=== PATIENT | male | born 1965 | race Asian ===

== ENCOUNTER 2017-03-13 22:52 | Emergency (ER) | payer MEDICAID ==
[~2017-03-13] VITALS: Ht 167.6 cm; Wt 122.0 kg
[~2017-03-13 22:52] MED LIST: LORA2TAB2 PO; RISP2 PO; RIVA20TA PO; ZOLP10TA2 PO
[2017-03-13 23:02] VITALS: BP 126/78
== END 2017-03-14 01:30 | disposition left against medical advice (07) ==
LOC: ER 22:56
DX: Z53.21 Procedure and treatment not carried out due to patient leaving prior to being seen by health care provider (principal)

== ENCOUNTER 2017-03-14 04:08 | Emergency (ER) | payer MEDICAID ==
[~2017-03-14] VITALS: Ht 167.6 cm; Wt 123.0 kg
[2017-03-14] MEDS ORDERED: ACETAMINOPHEN 325MG TABLET PO ONE (05:15)
[2017-03-14 05:26] LABS: HEMATOCRIT 34.6 % (42.0-52.0); HEMOGLOBIN 11.5 g/dL (14.0-18.0)
[2017-03-14 09:30] VITALS: BP 122/74
== END 2017-03-14 09:53 | disposition home or self-care (01) ==
LOC: ER 06:50
DX: M25.561 Pain in right knee (principal); M54.5 Low back pain; Y93.01 Activity, walking, marching and hiking; W01.0XXA Fall on same level from slipping, tripping and stumbling without subsequent striking against object, initial encounter; Y92.69 Other specified industrial and construction area as the place of occurrence of the external cause; Y99.0 Civilian activity done for income or pay; Z87.19 Personal history of other diseases of the digestive system; I10 Essential (primary) hypertension; E11.9 Type 2 diabetes mellitus without complications; J45.909 Unspecified asthma, uncomplicated; Z79.01 Long term (current) use of anticoagulants; Z79.899 Other long term (current) drug therapy
CPT/HCPCS: 36415; 72110; 73562; 85014; 85018; 99285

== ENCOUNTER 2018-09-28 16:13 | Inpatient (IN) | payer MEDICAID ==
[~2018-09-28] VITALS: Ht 162.6 cm; Wt 106.6 kg
[~2018-09-28 16:13] MED LIST changes: +INSULIN GLARGINE UD 100 UNITS/ML SYR SUBCUT SCH
[2018-09-28 18:05] LABS: BG BASE EXCESS 0.3 mmol/L (-2.0-2.0); BG CARBOXYHEMOGLOBIN 0.4 % (0.5-1.5); BG FRACTION INSPIRED OXYGEN 21; BG HCO3 ACT 24.8 mmol/L (22.0-26.0); BG METHEMOGLOBIN 0.3 % (0.0-1.5); BG OXYHEMOGLOBIN 95.3 % (94.0-97.0); BG PCO2 39.7 mmHg (35.0-45.0); BG PH 7.413 (7.350-7.450); BG PO2 83.1 mmHg (75.0-100.0); BG SAMPLE SITE RIGHT BRACHIAL; BG TOTAL HEMOGLOBIN 13.7 g/dL (12.0-18.0); BG VENT MODE ROOM AIR
[2018-09-28] MEDS ORDERED: SODIUM CHLORIDE 0.9% 1,000 ML IV ONE (18:10)
[2018-09-28] MEDS ORDERED: ASPIRIN 81MG TABLET PO ONE (18:15)
[2018-09-28] MEDS ORDERED: NITROGLYCERIN OINT 1GM/INCH UDPKT TD ONE (18:15)
[2018-09-28 19:14] LABS: BASOPHILS % 1.1 % (0.0-2.0); EOSINOPHILS % 1.6 % (0.0-5.0); HEMATOCRIT. 41.4 % (42.0-52.0); HEMOGLOBIN. 13.7 g/dL (14.0-18.0); LYMPHOCYTES % 25.2 % (20.0-50.0); MEAN CORPUSCULAR HEMOGLOBIN 27.8 pg (28.0-32.0); MEAN PLATELET VOLUME 8.5 fl (7.4-10.4); MONOCYTES % 5.4 % (2.0-8.0); NEUTROPHILS % 66.7 % (40.0-76.0); PLATELET 246 x1000/uL (130-400); RED BLOOD CELL COUNT 4.94 mill/uL (4.7-6.1); RED CELL DISTRIBUTION WIDTH 14.3 % (11.6-14.6)
[2018-09-28 19:17] LABS: CHLORIDE 100 mEq/L (98-107)
[2018-09-28 19:21] LABS: D-DIMER 3.34 mg/L FEU (<0.50); PROTHROMBIN TIME 10.2 sec (9.1-11.1)
[2018-09-28 19:24] LABS: PHOSPHORUS 2.9 mg/dL (2.5-4.9)
[2018-09-28 19:26] LABS: CARBAMAZEPINE < 0.5 ug/mL (4-12); PHENOBARBITAL < 2.1 ug/mL (15.0-40.0)
[2018-09-28] MEDS ORDERED: ENOXAPARIN 100MG/ML SYR SUBCUT ONE (19:30)
[2018-09-28 20:58] LABS: CLARITY URINE CLEAR (CLEAR); COLOR URINE YELLOW (YELLOW); KETONES URINE NEGATIVE (NEGATIVE); LEUKOCYTE ESTERASE URINE NEGATIVE (NEGATIVE); NITRITE URINE NEGATIVE (NEGATIVE); OCCULT BLOOD URINE TRACE (NEGATIVE); PROTEIN URINE 4+ (NEGATIVE); UROBILINOGEN URINE 0.2 E.U./dL (0.2-1.0)
[2018-09-28] MEDS ORDERED: IOHEXOL-350 100 ML BOTTLE ONE (21:14)
[2018-09-29] MEDS ORDERED: DEXTROSE 50% WATER 50ML SYRINGE IV PRN
[2018-09-29] MEDS ORDERED: DIPHENHYDRAMINE 50MG/ML VIAL IV PRN
[2018-09-29] MEDS ORDERED: ONDANSETRON HCL 4MG/2ML INJ IV PRN
[2018-09-29] MEDS ORDERED: LORAZEPAM 0.5MG TABLET PO PRN
[2018-09-29] MEDS ORDERED: IPRATROPIUM/ALBUTEROL 0.5-3(2.5)MG/3ML NEB INH PRN
[2018-09-29] MEDS ORDERED: GUAIFENESIN 200MG/10ML SUGAR FREE UDC PO PRN
[2018-09-29] MEDS ORDERED: MAGNESIUM/ALUMINUM HYDROXIDE/SIMETHICONE 30ML UDC PO PRN
[2018-09-29 04:30] VITALS: BP 190/109
[2018-09-29] MEDS: CLONIDINE 0.1MG TABLET PO PRN (05:53)
[2018-09-29] MEDS: DIVALPROEX SODIUM 250MG DR TABLET PO SCH ×3 (07:16→21:25)
[2018-09-29] MEDS: BLOOD SUGAR DIAGNOSTIC STRIP TEST SCH ×4 (07:16→21:26)
[2018-09-29 08:28] VITALS: BP 158/91
[2018-09-29] MEDS: INSULIN LISPRO 100 UNITS/ML SUBCUT SCH ×4 (08:53→21:40)
[2018-09-29] MEDS: ENOXAPARIN 100MG/ML SYR SUBCUT SCH ×2 (08:53→21:25)
[2018-09-29] MEDS ORDERED: LISINOPRIL 10MG TABLET PO SCH (09:00)
[2018-09-29] MEDS: INSULIN GLARGINE UD 100 UNITS/ML SYR SUBCUT SCH (10:19)
[2018-09-29] MEDS ORDERED: MAGNESIUM 2 G PREMIX 50 ML IV SCH (11:00)
[2018-09-29 12:00] VITALS: BP 152/91
[2018-09-29] MEDS ORDERED: INFLUENZA VIRUS VACCINE(AFLURIA) 0.5ML SYR IM ONE (14:15)
[2018-09-29 16:24] VITALS: BP 137/67
[2018-09-29 20:00] VITALS: BP 134/74
[2018-09-29] MEDS: LISINOPRIL 20MG TABLET PO SCH (21:25)
[2018-09-29] MEDS: ACETAMINOPHEN 325MG TABLET PO PRN (21:26)
[2018-09-29] MEDS: SODIUM CHLORIDE 0.9% INJ 3ML FLUSH IVF SCH (21:27)
[2018-09-30] VITALS: BP 123/78
[2018-09-30 04:00] VITALS: BP 169/89
[2018-09-30] MEDS: SODIUM CHLORIDE 0.9% INJ 3ML FLUSH IVF SCH ×3 (05:23→21:49)
[2018-09-30] MEDS: DIVALPROEX SODIUM 250MG DR TABLET PO SCH ×3 (05:23→21:48)
[2018-09-30] MEDS: CLONIDINE 0.1MG TABLET PO PRN (05:23)
[2018-09-30] MEDS: BLOOD SUGAR DIAGNOSTIC STRIP TEST SCH ×4 (06:46→21:49)
[2018-09-30 08:00] VITALS: BP 162/96
[2018-09-30] MEDS: LISINOPRIL 20MG TABLET PO SCH ×2 (09:02→21:48)
[2018-09-30] MEDS: ENOXAPARIN 100MG/ML SYR SUBCUT SCH ×2 (09:03→21:48)
[2018-09-30] MEDS: INSULIN LISPRO 100 UNITS/ML SUBCUT SCH ×4 (09:17→22:06)
[2018-09-30] MEDS: INSULIN GLARGINE UD 100 UNITS/ML SYR SUBCUT SCH (11:25)
[2018-09-30 12:00] VITALS: BP 122/68
[2018-09-30 16:00] VITALS: BP 104/55
[2018-09-30 20:00] VITALS: BP 143/85
[2018-09-30] MEDS: ACETAMINOPHEN 325MG TABLET PO PRN (22:05)
[2018-10-01] VITALS: BP 138/91
[2018-10-01 04:00] VITALS: BP 170/92
[2018-10-01] MEDS: SODIUM CHLORIDE 0.9% INJ 3ML FLUSH IVF SCH ×3 (05:03→21:30)
[2018-10-01] MEDS: CLONIDINE 0.1MG TABLET PO PRN (05:03)
[2018-10-01] MEDS: DIVALPROEX SODIUM 250MG DR TABLET PO SCH ×3 (05:03→21:29)
[2018-10-01] MEDS: BLOOD SUGAR DIAGNOSTIC STRIP TEST SCH ×4 (06:32→21:30)
[2018-10-01 08:00] VITALS: BP 119/66
[2018-10-01] MEDS: INSULIN LISPRO 100 UNITS/ML SUBCUT SCH ×4 (09:20→21:58)
[2018-10-01] MEDS: ENOXAPARIN 100MG/ML SYR SUBCUT SCH (09:22)
[2018-10-01] MEDS: LISINOPRIL 20MG TABLET PO SCH ×2 (09:22→21:29)
[2018-10-01 12:00] VITALS: BP 130/72
[2018-10-01 16:00] VITALS: BP 138/68
[2018-10-01] MEDS: METFORMIN HCL 500MG TABLET PO SCH (17:50)
[2018-10-01 20:00] VITALS: BP 124/68
[2018-10-01] MEDS: ENOXAPARIN 120MG/0.8ML SYR SUBCUT SCH (21:29)
[2018-10-02] VITALS (7 sets, daily range): BP systolic 99–164; BP diastolic 59–95
[2018-10-02] MEDS: CLONIDINE 0.1MG TABLET PO PRN (04:04)
[2018-10-02] MEDS: SODIUM CHLORIDE 0.9% INJ 3ML FLUSH IVF SCH ×2 (05:19→12:33)
[2018-10-02] MEDS: DIVALPROEX SODIUM 250MG DR TABLET PO SCH ×2 (05:19→14:35)
[2018-10-02] MEDS: BLOOD SUGAR DIAGNOSTIC STRIP TEST SCH ×3 (06:24→17:46)
[2018-10-02] MEDS: METFORMIN HCL 500MG TABLET PO SCH (07:50)
[2018-10-02] MEDS: INSULIN LISPRO 100 UNITS/ML SUBCUT SCH ×3 (08:52→17:52)
[2018-10-02] MEDS: LISINOPRIL 20MG TABLET PO SCH (08:54)
[2018-10-02] MEDS: ENOXAPARIN 120MG/0.8ML SYR SUBCUT SCH (08:55)
[2018-10-02] MEDS ORDERED: INSULIN GLARGINE UD 100 UNITS/ML SYR SUBCUT SCH (10:00)
[2018-10-02] MEDS ORDERED: NIFEDIPINE XL 60MG TAB PO SCH (14:00)
[2018-10-02] MEDS ORDERED: RIVAROXABAN 15 MG TABLET PO SCH (17:50)
[2018-10-03] MEDS ORDERED: GLIMEPIRIDE 2MG TABLET PO SCH (07:20)
[2018-10-03] MEDS ORDERED: INSULIN GLARGINE UD 100 UNITS/ML SYR SUBCUT SCH (10:00)
[2018-10-24] MEDS ORDERED: RIVAROXABAN 20 MG TABLET PO SCH (17:00)
== END 2018-10-02 21:50 | disposition home or self-care (01) | DRG 197 ==
LOC: ER 16:13 → EDBEDREQTM 20:00 → EDBEDREQ 20:00 → ENRESERV 09-29 02:40 → 6WST 09-29 04:30
PROVIDERS: ADMIT Internal Medicine; ATTEND Internal Medicine
DX: I82.412 Acute embolism and thrombosis of left femoral vein (principal); I26.99 Other pulmonary embolism without acute cor pulmonale; E11.22 Type 2 diabetes mellitus with diabetic chronic kidney disease; I82.431 Acute embolism and thrombosis of right popliteal vein; E11.65 Type 2 diabetes mellitus with hyperglycemia; G40.209 Localization-related (focal) (partial) symptomatic epilepsy and epileptic syndromes with complex partial seizures, not intractable, without status epilepticus; E66.9 Obesity, unspecified; Z83.3 Family history of diabetes mellitus; I12.9 Hypertensive chronic kidney disease with stage 1 through stage 4 chronic kidney disease, or unspecified chronic kidney disease; J45.909 Unspecified asthma, uncomplicated; G40.909 Epilepsy, unspecified, not intractable, without status epilepticus; I82.432 Acute embolism and thrombosis of left popliteal vein; Z68.41 Body mass index [BMI] 40.0-44.9, adult; Z82.49 Family history of ischemic heart disease and other diseases of the circulatory system; Z86.718 Personal history of other venous thrombosis and embolism; Z87.442 Personal history of urinary calculi
CPT/HCPCS: 36415; 36600; 71045; 71275; 80048; 80156; 80165; 80184; 80185; 82375; 82805; 82962; 83605; 83735; 83880; 84100; 84484; 85379; 90686; 93005; 93970; 96374; 96375; 97116; 97162; 99285; J1650; J1815; J3475; J7030; J7040; Q9967